=== PATIENT | male | born 1990 | race Caucasian/White ===

== ENCOUNTER 2018-11-23 00:44 | Emergency (ER) | payer OTHER ==
[2018-11-23 01:22] VITALS: BMI 28.8
--- NOTE | 2018-11-23 01:50 | PDOC ---
Attending Attestation - Resident Resident Name: Giovanni Piper - ED Attending Attestation I have performed the following: I have examined & evaluated the patient, The case was reviewed & discussed with the resident, I agree w/resident's findings & plan - HPI HPI: 11/23/18 02:50 28-year-old male with left upper quadrant pain after drinking alcohol. Patient reports nausea as well without vomiting or diarrhea. - Physicial Exam PE: 11/23/18 02:51 Agree with resident exam - Medical Decision Making 11/23/18 02:52 28 yo male with luq/epigastric pain plan for mylanta, pepcid iv likely d/c home pending re eval
[2018-11-23] MEDS ORDERED: FAMOTIDINE 20 MG/50 ML IVPB 20 MG/50 ML MG IVPB ONE ×2 (02:06→02:26)
[2018-11-23] MEDS ORDERED: MAG HYDROX/AL HYDROX/SIMETH -MYLANTA- ORAL SUSPENSION PO ONE (02:06)
--- NOTE | 2018-11-23 02:07 | PDOC ---
History of Present Illness - General Chief Complaint: Pain, Acute Stated Complaint: ABD PAIN Time Seen by Provider: 11/23/18 01:38 History Source: Patient Exam Limitations: No Limitations - History of Present Illness Initial Comments: HPI: 28 y/o male presenting to [facility] ER complaining of LUQ and upper left flank pain for the past four days. Described as a nonmigratory, gnawing pain. Initially intermittent but more constant and intense today. Worse after eating and at night. Endorses burning sensation in the throat and a metallic taste in mouth. Achieved some relief with PO antacids. Takes daily baby ASA. Denies frequent use of Ibuprofen, or other NSAIDS. Last BM yesterday, reportedly normal interval for pt. Endorses decreased PO intake secondary to loss of appetite. PCP: None Social Hx: - Tobacco: 0.5 packs per day. - EtOH: Infrequent social drinker. Endorses drinking approx. 5 shots on Tuesday evening before pain started. Medical Hx: - Pt denies past medical history. Denies prescription medications. Surgical Hx: - Pt denies past surgical history. Review of Systems: In addition to that documented in the HPI above, the additional ROS was obtained : Constitutional: Endorses subjective fever but never measured. Denies chills Head: Denies vision changes ENMT: Denies sore throat CV: Denies chest pain Resp: Denies SOB GI: Denies vomiting or diarrhea : Denies painful urination, hematuria, increased urinary frequency, penile discharge, testicular pain, or lower back pain. MSK: Denies recent trauma Skin: Denies new rashes Neuro: Denies new numbness or tingling or weakness Endocrine: Denies polyuria Heme: Denies bleeding or bruising Physical Examination: Constitutional: Well-developed, well-nourished adult male in no acute distress or obvious discomfort. Found semi-fowlers on hospital bed. Alert and oriented x4. Answered all questions appropriately and completely. Speech was non-labored , non-pressured. Cardiovascular / Chest: Regular rate and regular rhythm. No murmur, rubs, clicks , or gallops. Peripheral pulses: radial pulses full. Respiratory: Breathing unlabored. Equal chest rise and fall. Clear to auscultation bilaterally. No stridor, no wheezing, no rhonchi. Gastrointestinal: abdomen is tender in LUQ and epigastric region without rebound or guarding. Globally, abdomen is soft and nondistended. No pulsatile masses. No overlying skin lesions or obvious signs of trauma. Neuro: Alert and oriented. Moving all four extremities spontaneously. Skin: Warm, dry, and intact. : No R or L CVA tenderness. Psych: Affect: appropriate. Mood: normal. Male : Genital exam revealed normally developed male genitalia. Circumcised penis. No scrotal mass or tenderness, no hernias or inguinal lymphadenopathy. No perineal or perianal abnormalities are seen. No genital lesions or urethral discharge. consumer electronic retail specialist chaperoned exam. MDM: *Reviewed vital signs, nursing notes, and prior visit documentation (if available). 28 y/o male presenting with 4 days of LUQ vs epigastric pain with concurrent burning sensation in throat and metallic taste in mouth. Started after EtOH intake. Active smoker. Afebrile. Vitals remarkable for hypertension without tachycardia. Low suspicion for relevance to acute complaint. Will trend. Physical exam as described above. No acute abdomen. Suspect alcohol gastritis vs PUD. Low suspicion for pancreatitis, hepatitis, or biliary pathology. Will obtain CBC, BMP, Lipase, UA, and urine culture. Ordered Pepcid and Mylanta for symptom relief. CBC unremarkable for leukocytosis. BMP unremarkable for electrolyte derangement. Lipase not elevated. UA unremarkable for pyuria, nitrites, or leukocyte esterase. Continue to suspect gastritis with reflux. Will prescribe two week course of Omeprazole and refer to GI clinic. Will also provide PCP referral for hypertension follow up. Pt reassessed and reports feeling better. Repeat abdominal exam unchanged from initial. No acute abdominal signs. Discussed laboratory results with pt. Answered all questions. Provided return precautions. Pt expressed verbal understanding and agreement with plan to discharge home with outpatient follow up. Giovanni Piper M.D., PGY1 Emergency Medicine Resident Past History - Past Medical History Allergies/Adverse Reactions: Allergies Allergy/AdvReac Type Severity Reaction Status Date / Time No Known Allergies Allergy Verified 11/23/18 01:20 Home Medications: Ambulatory Orders Omeprazole 20 mg PO DAILY 14 Days #14 tablet. 11/23/18 COPD: No - Immunization History Immunization Up to Date: Yes - Suicide/Smoking/Psychosocial Hx Smoking History: Current every day smoker Number of Cigarettes Smoked Daily: 10 Information on smoking cessation initiated: Yes Hx Alcohol Use: Yes Drug/Substance Use Hx: No *Physical Exam - Vital Signs Last Vital Signs Temp Pulse Resp BP Pulse Ox 97.5 F L 85 19 171/86 H 97 11/23/18 01:05 11/23/18 01:05 11/23/18 01:05 11/23/18 01:05 11/23/18 01:05 Vital Signs - Vital Signs #1 Blood Pressure: 154/99 MAP: 117 BP Location: Right Arm Blood Pressure Position: Supine Pulse Rate: 81 Respiratory Rate: 16 O2 Sat by Pulse Oximetry (%): 100 Oxygen Delivery Method: Room Air ED Treatment Course - LABORATORY CBC & Chemistry Diagram: 11/23/18 02:30 11/23/18 02:30 *DC/Admit/Observation/Transfer Diagnosis at time of Disposition: Abdominal pain Qualifiers: Abdominal location: left upper quadrant Qualified Code(s): R10.12 - Left upper quadrant pain - Discharge Dispostion Disposition: HOME Condition at time of disposition: Improved Decision to Admit order: No - Prescriptions Prescriptions: Omeprazole 20 mg PO DAILY 14 Days #14 tablet.dr - Referrals Referrals: [facility] [place] [Provider Group] Lucho Barrientos MD [Staff Physician] - - Patient Instructions Printed Discharge Instructions: DI for Gastroesophageal Reflux Disease (GERD), GERD Diet, DI for Alcoholic Gastritis Additional Instructions: You were seen today for upper abdominal pain. Your symptoms are likely related to stomach irritation from the alcohol and/or from gastric reflux (GERD). I have sent a prescription for a medication called Omeprazole to your pharmacy. Take this medication as directed on the package insert. Take it every morning an hour before eating anything. Do not eat spicy foods. Do not drink alcohol or caffeinated drinks (e.g. coffee , tea). Stop taking NSAIDS (e.g. Mortrin, Ibuprofen, Advil, Aleve). You need to follow up with a stomach doctor. I have placed a referral for you to see Dr. Barrientos. You will need to call to make an appointment. The number is included in this packet. Your blood pressure was also found to be elevated. This is not likely to be related to your pain, but you should be seen by a primary care doctor. I have entered a referral for you to see a primary care physician at [facility] [place] [facility]. You will need to call to make an appointment in the next 2-4 days. The telephone number is [phone]. The address is: [facility] at [address], [place] [address] A copy of todays results are attached to this packet. Take it to the appointment so your doctor can review them. Go to the nearest emergency department if your condition worsens or you feel like you need additional emergency evaluation. Print Language: HUNGARIAN - Post Discharge Activity
[2018-11-23] MEDS ORDERED: MAG HYDROX/AL HYDROX/SIMETH 30 ML UNIT-DOSE CUP ONE ×2 (02:26→02:27)
[2018-11-23 02:41] LABS: BASO % 1.1 % (0-2.0); EOS % 7.6 % (0-4.5); HEMOGLOBIN 14.3 GM/dL (11.7-16.9); LYMPH % 24.2 % (8-40); MCH 29.2 pg (25.7-33.7); MCHC 34.2 g/dl (32.0-35.9); MEAN CELL VOLUME 85.4 fl (80-96); MEAN PLT VOLUME 8.5 fl (7.5-11.1); MONO % 5.9 % (3.8-10.2); NEUT % 61.2 % (42.8-82.8); PLATELET COUNT 337 K/MM3 (134-434); RBC 4.91 M/mm3 (4.00-5.60); RDW 12.5 % (11.9-15.9); WHITE BLOOD COUNT 9.2 K/mm3 (4.0-10.0)
[2018-11-23 03:06] LABS: BLOOD UREA NITROGEN 14.7 mg/dL (7-18); CALCIUM 9.8 mg/dL (8.5-10.1); CREATININE 1.1 mg/dL (0.55-1.3); POTASSIUM 4.3 mmol/L (3.5-5.1)
[2018-11-23 03:37] LABS: PH,URINE 7.5 (5.0-8.0); URINE APPEARANCE CLEAR; URINE BILIRUBIN NEGATIVE (NEGATIVE); URINE COLOR YELLOW; URINE GLUCOSE (UA) NEGATIVE (NEGATIVE); URINE KETONE TRACE (NEGATIVE); URINE LEUK ESTERASE NEGATIVE (NEGATIVE); URINE NITRITE NEGATIVE (NEGATIVE); URINE PROTEIN NEGATIVE (NEGATIVE); URINE UROBILINOGEN 0.2 mg/dL (0.2-1.0)
[2018-11-23 04:07] VITALS: BP 146/87; PULSE 70; TEMP 98.5
== END 2018-11-23 04:18 | disposition home or self-care (01) ==
LOC: JER 00:44
PROC: 3E033GC Introduction of Other Therapeutic Substance into Peripheral Vein, Percutaneous Approach (ICD-10-PCS; principal; 2018-11-23)
DX: R10.12 Left upper quadrant pain (principal)
CPT/HCPCS: 36415; 80048; 81003; 83690; 85025; 87086; 99283-25